=== PATIENT | female | born 1965 | race Caucasian/White ===

== ENCOUNTER 2016-09-19 18:57 | Emergency (ER) | payer BC ==
[2016-09-19 19:54] LABS: HEMOGLOBIN 8.9 gm/dl (12.3-15.3); RED BLOOD COUNT 4.03 M/UL (4.00-5.10); WHITE BLOOD COUNT 14.6 K/UL (4.5-11.0)
[2016-09-19 20:03] LABS: BUN/CREATININE RATIO 11 (0-10)
== END 2016-09-19 22:00 | disposition home or self-care (01) ==
LOC: ER1 18:57
PROVIDERS: Emergency Medicine
DX: A41.9 Sepsis, unspecified organism (principal); N12 Tubulo-interstitial nephritis, not specified as acute or chronic; K75.9 Inflammatory liver disease, unspecified; D64.9 Anemia, unspecified
CPT/HCPCS: 36415; 71010; 80053; 81001; 83605; 85025; 85610; 85730; 87040; 96361; 96365; 96367; 99285; J0696; J3370; J7050

== ENCOUNTER → 2016-09-30 | Outpatient (CLI) | payer BC ==
[~2016-09-30] VITALS: Ht 160 cm; Wt 64.4 kg
[2016-09-30 13:05] LABS: HEMOGLOBIN 7.7 gm/dl (12.3-15.3)
[2016-09-30 17:10] LABS: HEMOGLOBIN 9.2 gm/dl (12.3-15.3)
== END ==
LOC: OPSV 12:00
PROVIDERS: Internal Medicine
DX: R10.9 Unspecified abdominal pain (principal)
CPT/HCPCS: 36415; 36430; 85014; 85018; 86850; 86900; 86901; 86920; J7050; P9016; Q0163